=== PATIENT | female | born 1990 | race Caucasian/White ===

== ENCOUNTER 2018-02-15 10:27 | Emergency (ER) | payer MEDICAID ==
[~2018-02-15] VITALS: Ht 165.1 cm; Wt 98.0 kg
[2018-02-15] MEDS ORDERED: PROPARACAINE OPHTH 0.5%, 15ML EACHEYE ONE (11:00)
[2018-02-15] MEDS ORDERED: FLUORESCEIN OPHTHALMIC 1 MG STRIP EACHEYE ONE (11:00)
[2018-02-15] MEDS ORDERED: DEXAMETHASONE 4 MG/ML, 1ML ONE (13:15)
[2018-02-15] MEDS ORDERED: ONDANSETRON ODT 4 MG ONE (13:15)
[2018-02-15] MEDS ORDERED: DIPHENHYDRAMINE 50 MG/ML, 1ML ONE (13:15)
[2018-02-15] MEDS ORDERED: METOCLOPRAMIDE 5 MG/ML, 2ML IVPush ONE (13:30)
[2018-02-15] MEDS ORDERED: DEXAMETHASONE 4 MG/ML, 1ML IVPush ONE (13:30)
[2018-02-15] MEDS ORDERED: DIPHENHYDRAMINE 50 MG/ML, 1ML IVPush ONE (13:30)
[2018-02-15] MEDS ORDERED: SODIUM CHLORIDE FLUSH 10ML SYR IVF ONE (13:30)
[2018-02-15] MEDS ORDERED: METOCLOPRAMIDE 5 MG/ML, 2ML ONE (13:34)
[2018-02-15 15:49] VITALS: BP 132/64
== END 2018-02-15 15:51 | disposition home or self-care (01) ==
LOC: ED 15:45
DX: G43.001 Migraine without aura, not intractable, with status migrainosus (principal); H10.9 Unspecified conjunctivitis
CPT/HCPCS: 70450; 71046; 96374; 96375; 99284; J1100; J1200; J2765

== ENCOUNTER 2021-04-05 11:09 | Outpatient (CLI) | payer MEDICAID ==
[~2021-04-05] VITALS: Ht 165.1 cm; Wt 106.8 kg
[2021-04-05] MEDS ORDERED: PREN1TAB60 PO (11:43)
[2021-04-05 11:46] VITALS: BP 108/53
[2021-04-05 13:40] LABS: MICROSCOPIC INDICATED
[2021-04-05 13:54] LABS: AMPHETAMINE SCREEN, URINE Negative (Negative); BARBITURATE SCREEN, URINE Negative (Negative); BENZODIAZEPINE SCREEN, URINE Negative (Negative); CANNABINOID SCREEN, URINE Positive (Negative); COCAINE SCREEN, URINE Negative (Negative); METHADONE SCREEN, URINE Negative (Negative); OPIATE SCREEN, URINE Negative (Negative)
[2021-05-21] MEDS ORDERED: OXYC1TAB12 PO (08:01)
== END 2021-04-05 23:59 | disposition home or self-care (01) ==
LOC: LDOP 11:09
PROVIDERS: ATTEND Obstetrics & Gynecology
DX: Z34.93 Encounter for supervision of normal pregnancy, unspecified, third trimester (principal); Z3A.33 33 weeks gestation of pregnancy
CPT/HCPCS: 59025; 80307; 81001; 87086

== ENCOUNTER 2021-05-19 05:56 | Inpatient (IN) | payer MEDICAID ==
[~2021-05-19] VITALS: Ht 165.1 cm; Wt 106.8 kg
[~2021-05-19 05:56] MED LIST: PREN1TAB60 PO
[2021-05-19] MEDS ORDERED: NEWBORN KIT ONE (06:20)
[2021-05-19] MEDS ORDERED: SODIUM CITRATE/CITRIC ACID 15 ML UDC ONE (06:20)
[2021-05-19] MEDS ORDERED: OXYTOCIN 30U/ 0.9% NaCL 500ML 500 ML ONE (06:20)
[2021-05-19] MEDS ORDERED: METOCLOPRAMIDE 5 MG/ML, 2ML IV ONE (06:30)
[2021-05-19] MEDS ORDERED: LACTATED RINGERS 1,000 ML IVBOLUS ONE (06:30)
[2021-05-19] MEDS ORDERED: SODIUM CITRATE/CITRIC ACID 30 ML UDC PO ONE (06:30)
[2021-05-19] MEDS ORDERED: CALCIUM CARBONATE 500 MG TAB.CHEW PO PRN (06:30)
[2021-05-19 06:34] VITALS: BP 118/66
[2021-05-19 06:41] LABS: BASOPHILS % (AUTO) 0 % (0-1); EOSINOPHILS % (AUTO) 1 % (1-7); LYMPHOCYTES % (AUTO) 11 % (22-44); MEAN CORPUSCULAR HEMOGLOBIN 27.3 pg (27.0-34.8); MEAN CORPUSCULAR HGB CONC 33.2 g/dL (32.4-35.8); MEAN PLATELET VOLUME 9.1 fL (7.4-10.4); MONOCYTES % (AUTO) 8 % (2-9); NEUTROPHILS % (AUTO) 80 % (42-75); PLATELET COUNT 203 x10^3/uL (130-400); RED BLOOD COUNT 4.68 x10^6/uL (3.82-5.3); RED CELL DISTRIBUTION WIDTH 14.9 % (9.6-15.2)
[2021-05-19] MEDS ORDERED: FENTANYL PF 100 MCG/2ML ONE (07:09)
[2021-05-19] MEDS ORDERED: PHENYLEPHRINE 10 MG/ML ONE (07:09)
[2021-05-19] MEDS ORDERED: CEFAZOLIN 1,000 MG ONE (07:09)
[2021-05-19] MEDS ORDERED: EPHEDRINE 50 MG/ML, 1ML ONE (07:09)
[2021-05-19] MEDS ORDERED: ONDANSETRON 2MG/ML, 2ML ONE (07:09)
[2021-05-19] MEDS ORDERED: KETOROLAC 30 MG/1 ML ONE (07:09)
[2021-05-19] MEDS ORDERED: OXYTOCIN 10 UNITS/ML, 1ML ONE (07:09)
[2021-05-19] MEDS ORDERED: DEXAMETHASONE 4 MG/ML, 1ML ONE (07:09)
[2021-05-19] MEDS ORDERED: HYDROmorphone 2 MG/ML, 1ML ONE (07:17)
[2021-05-19] MEDS ORDERED: ONDANSETRON 2MG/ML, 2ML IVPush PRN (07:30)
[2021-05-19] MEDS ORDERED: PROMETHAZINE 25 MG/ML, 1ML IV PRN (07:30)
[2021-05-19] MEDS ORDERED: METOPROLOL 1 MG/ML, 5ML IV PRN (07:30)
[2021-05-19] MEDS ORDERED: hydrALAzine 20 MG/ML, 1ML IV PRN (07:30)
[2021-05-19] MEDS ORDERED: EPHEDRINE 50 MG/ML, 1ML IVPush PRN (07:30)
[2021-05-19] MEDS ORDERED: HYDROcodone/APAP 7.5-325MG/15ML UDC PO PRN (07:30)
[2021-05-19] MEDS ORDERED: MIDAZOLAM 1 MG/ML, 2ML IV PRN (07:30)
[2021-05-19] MEDS ORDERED: MEPERIDINE/PF 25MG/0.5ML IVPush PRN (07:30)
[2021-05-19] MEDS ORDERED: OXYcodone 5 MG/5 ML ORAL.SOL UDC PO PRN ×2 (07:30→09:30)
[2021-05-19] MEDS ORDERED: HYDROmorphone 2 MG/ML, 1ML IVPush PRN (07:30)
[2021-05-19] MEDS ORDERED: FENTANYL PF 100 MCG/2ML IV PRN ×2 (07:30→09:30)
[2021-05-19] MEDS ORDERED: LABETALOL 5MG/ML, 20ML IV PRN (07:30)
[2021-05-19] MEDS ORDERED: ALBUTEROL SULFATE 2.5 MG/3 ML NPPB PRN (07:30)
[2021-05-19 08:13] LABS: AMPHETAMINE SCREEN, URINE Negative (Negative); BARBITURATE SCREEN, URINE Negative (Negative); BENZODIAZEPINE SCREEN, URINE Negative (Negative); CANNABINOID SCREEN, URINE Positive (Negative); COCAINE SCREEN, URINE Negative (Negative); METHADONE SCREEN, URINE Negative (Negative); OPIATE SCREEN, URINE Negative (Negative)
[2021-05-19] MEDS: LACTATED RINGERS 1,000 ML IV SCH ×4 (08:30→18:30)
[2021-05-19] MEDS ORDERED: METHYLERGONOVINE 0.2 MG/ML IM PRN (08:30)
[2021-05-19] MEDS ORDERED: MISOPROSTOL 200 MCG TABLET PR PRN (08:30)
[2021-05-19] MEDS ORDERED: ONDANSETRON 2MG/ML, 2ML IV PRN (08:30)
[2021-05-19] MEDS: PRENATAL VIT/IRON/FA 1 EACH TABLET PO SCH (09:00)
[2021-05-19] MEDS ORDERED: DIPHENHYDRAMINE 50 MG/ML, 1ML ONE (09:39)
[2021-05-19] MEDS ORDERED: DIPHENHYDRAMINE 50 MG/ML, 1ML IVPush PRN (10:00)
[2021-05-19 10:10] VITALS: BP 97/57
[2021-05-19] MEDS: OXYcodone/APAP 5/325MG TABLET PO PRN ×4 (13:06→23:04)
[2021-05-19 14:00] VITALS: BP 103/69
[2021-05-19] MEDS: OXYTOCIN 30U/ 0.9% NaCL 500ML 500 ML IV SCH ×2 (14:04→18:30)
[2021-05-19] MEDS: KETOROLAC 30 MG/1 ML IV SCH ×2 (14:13→19:57)
[2021-05-19 16:25] LABS: BASOPHILS % (AUTO) 0 % (0-1); EOSINOPHILS % (AUTO) 0 % (1-7); LYMPHOCYTES % (AUTO) 8 % (22-44); MEAN CORPUSCULAR HGB CONC 32.9 g/dL (32.4-35.8); MEAN PLATELET VOLUME 9.1 fL (7.4-10.4); MONOCYTES % (AUTO) 5 % (2-9); NEUTROPHILS % (AUTO) 87 % (42-75); PLATELET COUNT 183 x10^3/uL (130-400); RED BLOOD COUNT 4.36 x10^6/uL (3.82-5.3); RED CELL DISTRIBUTION WIDTH 14.9 % (9.6-15.2)
[2021-05-19 19:50] VITALS: BP 104/69
[2021-05-19] MEDS: SIMETHICONE 80 MG CHEW TAB PO PRN (19:58)
[2021-05-19] MEDS: DOCUSATE 100 MG CAPSULE PO PRN (19:58)
[2021-05-20 00:10] VITALS: BP 109/68
[2021-05-20] MEDS: LACTATED RINGERS 1,000 ML IV SCH ×5 (00:30→16:57)
[2021-05-20] MEDS: KETOROLAC 30 MG/1 ML IV SCH ×4 (02:01→19:37)
[2021-05-20] MEDS: OXYcodone/APAP 5/325MG TABLET PO PRN ×3 (03:11→19:38)
[2021-05-20 04:30] VITALS: BP 98/50
[2021-05-20] MEDS: OXYTOCIN 30U/ 0.9% NaCL 500ML 500 ML IV SCH ×3 (04:30→16:57)
[2021-05-20] MEDS ORDERED: MEASLES,MUMPS&RUBELLA VACC/PF 0.5 ML SQ-VACC ONE (05:30)
[2021-05-20 08:00] VITALS: BP 104/69
[2021-05-20] MEDS: PRENATAL VIT/IRON/FA 1 EACH TABLET PO SCH (08:05)
[2021-05-20] MEDS: DOCUSATE 100 MG CAPSULE PO PRN ×2 (08:05→19:38)
[2021-05-20 19:15] VITALS: BP 113/61
[2021-05-20] MEDS: SIMETHICONE 80 MG CHEW TAB PO PRN (19:38)
[2021-05-21] MEDS: OXYcodone/APAP 5/325MG TABLET PO PRN ×2 (00:14→05:06)
[2021-05-21] MEDS: KETOROLAC 30 MG/1 ML IV SCH (02:13)
[2021-05-21] MEDS ORDERED: MEASLES,MUMPS&RUBELLA VACC/PF 0.5 ML SQ-VACC ONE (06:19)
[2021-05-21] MEDS ORDERED: OXYC1TAB14 PO (08:01)
[2021-05-21] MEDS ORDERED: IBUP-1223 PO (08:01)
[2021-05-21] MEDS ORDERED: DOCU-131 PO (08:01)
[2021-05-21] MEDS: PRENATAL VIT/IRON/FA 1 EACH TABLET PO SCH (08:19)
[2021-05-21] MEDS: DOCUSATE 100 MG CAPSULE PO PRN (08:19)
[2021-05-21 08:21] VITALS: BP 118/75
[2021-05-21] MEDS ORDERED: IBUPROFEN 800 MG TABLET PO PRN (08:30)
[2021-05-21] MEDS ORDERED: DIPH,PERTUSS(ACELL),TET VAC/PF NC IM-VACC ONE ×2 (09:53→10:00)
== END 2021-05-21 10:55 | disposition home or self-care (01) | DRG 788 ==
LOC: LDIP 05:56 → 2NW 10:04
PROVIDERS: ADMIT Obstetrics & Gynecology; ATTEND Obstetrics & Gynecology
PROC: 10D00Z1 Extraction of Products of Conception, Low, Open Approach (ICD-10-PCS; principal; 2021-05-19)
DX: O34.211 Maternal care for low transverse scar from previous cesarean delivery (principal); O69.81X0 Labor and delivery complicated by cord around neck, without compression, not applicable or unspecified; Z37.0 Single live birth; Z3A.39 39 weeks gestation of pregnancy; Z20.822 Contact with and (suspected) exposure to COVID-19
CPT/HCPCS: 36415; 80307; 85025; 86592; 86850; 86900; 87635; 87806; 90707; 90715; G0378; J0690; J1100; J1170; J1885; J2405; J3010; G0475; J2370; J2590; J2765; J7120